=== PATIENT | female | born 1955 | race Caucasian/White ===

== ENCOUNTER 2022-11-06 11:22 | Outpatient (CLI) | payer OTHER, MEDICARE ==
[~2022-11-06 11:22] MED LIST: CALC-959 PO; PROP10DR2 EACH EYE; [UNRECOGNIZED DRUG - CODE] PO
== END 2022-11-06 20:18 | disposition home or self-care (01) ==
LOC: SRD 11:22
DX: Z01.818 Encounter for other preprocedural examination (principal); M65.4 Radial styloid tenosynovitis [de Quervain]; Z98.82 Breast implant status
CPT/HCPCS: 71046-TC; 93005